=== PATIENT | female | born 1980 | race Hispanic/Latino ===

== ENCOUNTER 2023-07-30 14:57 | Outpatient (RCR) | payer MEDICAID, SELFPAY | END 2023-08-08 23:59 | disposition home or self-care (01) | LOC: CPTX 14:57 | PROVIDERS: PCP Nurse Practitioner Primary Care; Referring Provider Nurse Practitioner Primary Care; Visit Provider Nurse Practitioner Primary Care | DX: Z53.9 Procedure and treatment not carried out, unspecified reason (principal) ==

== ENCOUNTER 2025-07-14 08:30 | Emergency (ER) | payer MEDICAID, SELFPAY ==
--- NOTE | 2025-07-14 08:40 | EKG_ITS ---
[facility] Test Date: 2025-07-14 Pat Name: LOLIS VERGARA Department: Room: - Gender: Female [employer]: : 1980 Requested By: ED Temporary Provider Order Number: [id number] Reading MD: ED Temporary Provider Measurements Intervals [place] Rate: 73 P: -9 WI: 119 QRS: 53 QRSD: 94 T: 48 QT: 374 QTc: 415 Interpretive Statements SINUS RHYTHM WITH SHORT WI INTERVAL Compared to ECG 01/05/2023 08:10:10 Short WI interval now present T-wave abnormality no longer present /store/S0/[id number].pdf
[2025-07-14 08:47] VITALS: BP 144/87; PULSE 79; RESP 18; TEMP 36.7; O2SAT 99; BMI 21.9
--- NOTE | 2025-07-14 09:00 | XR_ITS ---
Examination: PA lateral chest 2 views TECHNIQUE: Upright PA lateral chest 2 views Date and time: July 14, 2025 0902 hours INDICATIONS: Chest pain today. FINDINGS: Suspicious for early pneumonia right base. Normal heart size. Left lung clear. The osseous structures are intact IMPRESSION: Suspicious for early pneumonia right base
--- NOTE | 2025-07-14 09:04 | EDNOTE_ITS ---
ED SOB =RME/HPI General Chief Complaint: Shortness of Breath/Dyspnea Stated Complaint: SOB X1 WEEK Time Seen by Provider: 07/14/25 09:05 Source: patient Arrival date/time: 07/14/25 08:30 45-year-old female with no known medical history presents to the emergency room with a chief complaint of shortness of breath and palpitations x 1 week Mode of arrival: ambulatory Limitations: no limitations Related Data Home Medications ?Medication ?Instructions ?Recorded ?Confirmed hydrocodone 5 mg-acetaminophen 325 1 tab PO Q6H 01/05/23 mg tablet Previous Rx's ?Medication ?Instructions ?Recorded amoxicillin 875 mg-potassium 1 tab PO BID 7 days #14 t abs 07/14/25 clavulanate 125 mg tablet Allergies Allergy/AdvReac Type Severity Reaction Status Date / Time No Known Allergies Allergy Verified 07/14/25 08:33 Review of Systems Review of Systems Systems Reviewed: All systems reviewed, normal except as documented Constitutional Constitutional: Reports system reviewed and no additional complaints, except as documented, Denies fatigue, Denies fever(s), Denies headache(s) and Denies weakness Eyes Eyes: Reports system reviewed and no additional complaints, except as documented, Denies blurry vision and Denies change in vision ENT Ears, Nose, Mouth, and Throat: Reports system reviewed and no additional complaints, except as documented, Denies otalgia, Denies headache(s), Denies nasal congestion, Denies throat swelling and Denies vertigo Cardiovascular Cardiovascular: Reports system reviewed and no additional complaints, except as documented, Denies chest pain, Denies dyspnea, Denies dyspnea on exertion, Repo rts irregular heart rhythm, Reports orthopnea and Reports palpitations Respiratory Respiratory: Reports system reviewed and no additional complaints, except as documented, Denies chest congestion, Denies cough, Denies dyspnea, Denies dyspnea on exertion and Denies wheezing Gastrointestinal Gastrointestinal: Reports system reviewed and no additional complaints, except as documented, Denies abdominal pain, Denies cramping, Denies nausea and Denies vomiting Genitourinary Genitourinary: Reports system reviewed and no additional complaints, except as documented Musculoskeletal Musculoskeletal: Reports system reviewed and no additional complaints, except as documented and Denies back pain Integumentary/Breasts Skin/Breast: Reports system reviewed and no additional complaints, except as documented and Denies wounds Neurologic Neurologic: Reports system reviewed and no additional complaints, except as documented, Denies confusion, Denies headache(s), Denies lack of coordination, Denies vertigo and Denies weakness Psychiatric Psychiatric: Reports system reviewed and no additional complaints, except as documented, Denies anxiety, Denies confusion, Denies depression, Denies paranoia, Denies suicidal ideation and Denies tactile hallucinations Endocrine Endocrine: Reports system reviewed and no additional complaints, except as documented, Denies fatigue and Reports palpitations Hematologic/Lymphatic Hematologic/Lymphatic: Reports system reviewed and no additional complaints, except as documented and Denies lymphadenopathy Allergic/Immunologic Allergic/Immunologic: Reports system reviewed and no additional complaints, except as documented, Denies throat swelling, Denies urticaria and Denies whee zing ED Exam General Limitations: Present no limitations General appearance: Present alert and in no apparent distress Head Head exam: Present atraumatic Eye Eye exam: Present normal appearance, PERRL and EOMI ENT ENT exam: Present normal exam, normal oropharynx and mucous membranes moist Neck Neck exam: Present normal inspection, full ROM and trachea midline Chest Chest inspection: Present normal inspection and symmetric chest wall rise Respiratory Respiratory exam: Present normal lung sounds bilaterally; Absent respiratory distress, wheezes, stridor, accessory muscle use or prolonged expiratory phase Cardiovascular Cardiovascular exam: Present regular rate, normal rhythm, normal heart sounds, +S1 and +S2; Absent bradycardia, tachycardia, irregular rhythm, systolic murmur, diastolic murmur, rubs, gallop, clicks or JVD Abdominal Exam Abdominal exam: Present soft and normal bowel sounds Extremities Exam Extremities exam: Present normal inspection and full ROM Back Exam Back exam: Present normal inspection and full ROM Neurological Exam Neurological exam: Present alert, oriented X3 and CN II-XII intact Psychiatric Psychiatric exam: Present normal affect and normal mood Skin Skin exam: Present warm, dry, intact and normal color Course Quality Measures none Orders Category Date Time Status EKG (ED ONLY) *Do not use* NOW Care 07/14/25 08:40 Completed EKG (ED Only) Stat Exams 07/14/25 08:40 Draft EKG (ED Only) Urgent Exams 07/14/25 08:40 Ordered XR chest 2V Stat Exams 07/14/25 09:00 Completed B-Type Natriuretic Peptide Stat Lab 07/14/25 09:41 Completed CBC Stat Lab 07/14/25 09:41 Completed Comprehensive Metabolic Panel Stat Lab 07/14/25 09:41 Completed Drug Screen,Urine Stat Lab 07/14/25 10:00 Completed Free T4 (Free Thyroxine) Stat Lab 07/14/25 09:41 Completed Magnesium Stat Lab 07/14/25 09:41 Completed Partial Thromboplastin Time Stat Lab 07/14/25 09:41 Completed Prothrombin Time with INR Stat Lab 07/14/25 09:41 Completed TSH [Thyroid Stimulating Hormone] Stat Lab 07/14/25 09:41 Completed Troponin I Stat Lab 07/14/25 09:41 Completed Urinalysis, C/S if Indicated Stat Lab 07/14/25 10:00 Completed Vital Signs Vital signs: Vital Signs Temperature 98.1 F 07/14/25 08:47 Pulse Rate 79 07/14/25 08:47 Respiratory Rate 18 07/14/25 08:47 Blood Pressure 144/87 H 07/14/25 08:47 Pulse Oximetry (%) 99 07/14/25 08:47 Oxygen Delivery Method Room Air 07/14/25 08:47 PROCEDURES: EKG Interpretation #1: Date of EK07/14/25 Rate: 73 Interpretation: Reviewed by me EKG Impression: Normal sinus rhythm Shortness of Breath / Dyspnea MDM Narrative MDM Narrative:: 45-year-old female with no known medical history presents to the emergency room with a chief complaint of shortness of breath and palpitations x 1 week Patient is hemodynamically stable and in no apparent distress. Patient is afebrile nontachycardic nontachypneic and O2 saturation 99% within normal limits Physical examination shows clear bilateral lung sounds there is no wheezing or any abnormal breath sounds CBC CMP are within normal limits. Thyroid function is within normal limits EKG shows normal sinus rhythm at [address] deviation. Troponin BNP were all within normal limits Chest x-ray shows suspicion for pneumonia. Antibiotics are sent to the [facility] pharmacy Patient was discharged and educated to follow-up with primary care provider in the next 24 to 48 hours and return to the emergency room for any evidence of worsening signs or symptoms Patient data External records reviewed:: [facility] previous records Clinical information provided by:: patient Social determinants that could affect healthcare access:: none Patient has the following chronic illnesses:: No chronic illness How is presenting disease/condition affected by chronic disease/condition?: no chronic disease Evaluation data The following diagnostics were reviewed and interpreted by me:: lab results and radiology exam(s) Lab and/or radiology exams considered but not ordered:: Labs and radiology exams considered and ordered Interpretation Summary: Chest x-thy-[id number]: Suspicious for early pneumonia right base. Normal heart size. Left lung clear. The osseous structures are intact IMPRESSION: Suspicious for early pneumonia right base Medications / Prescriptions Medications or Prescriptions considered but not ordered:: No medication given Medication administrations:: No medication given Consultations Consultation(s) initiated? (list below): No Diagnosis Shortness of Breath Differential Diagnosis: community acquired pneumonia and other (Chest pain/palpitations/hypothyroidism/hypothyroidism/STEMI/NSTEMI) Most likely diagnosis given after review of the tests above:: Community-acquired pneumonia Admission Indicated Admission indicated?: not indicated Admission Request Was there a request for admission?: No Disposition Plan Disposition Plan: Discharge Discharge Attestation Discharge Attestation: The patient and all family members were given an opportunity to ask questions and understood the discharge instructions. Discharge instructions specifically effects, indications for sooner follow up or return to the emergency department, and the expected course of current diagnosis. Patient condition: Stable Discharge Plan Plan Patient Disposition: HOME (Self Care) Discharge Disposition comment: Stable Prescriptions/Referrals Prescriptions/Med Rec: New amoxicillin-pot clavulanate 875-125 mg tablet 1 tab PO BID 7 Days Qty: 14 0RF No Action hydrocodone-acetaminophen 5-325 mg tablet 1 tab PO Q6H Patient Comments: Take 1 tablet by mouth every six hours as needed for pain Referrals: Inna May FNP ([facility]) [Primary Care Provider] - In 1 week Problem List Clinical Impression: Community acquired pneumonia Patient/Caregiver Discharge Instructions Education Materials: ED Pneumonia (Adult) Additional Instructions: Please follow-up with your primary care provider in the next 24 to 48 hours Your x-ray showed some pneumonia. Antibiotics were sent to your pharmacy please pick them up and take them as indicated Your cardiac examination was within normal limits. Your blood work was normal your urine was normal For any evidence of worsening signs or symptoms return to emergency room immediately Print Language: Citizen Of [place] Stand Alone Forms: Charley Award Info., Work/School Release, Patient Portal Info Letter DENZEL/AYANA Supervising Physician DENZEL/AYANA Supervising Physician: Dr. Townsend
[2025-07-14 10:02] LABS: Basophils # (Auto) 0.0 Thou/mm3 (0.0-0.2); Basophils % (Auto) 0 % (0-2.5); Eosinophils # (Auto) 0.0 Thou/mm3 (0.0-0.5); Eosinophils % (Auto) 0 % (0-10); Hematocrit 38.5 % (36.0-46.0); Hemoglobin 13.0 g/dL (12.0-16.0); Immature Granulocytes Auto 0.04 Thou/mm3 (0.00-0.00); Lymphocytes # (Auto) 2.8 Thou/mm3 (1.0-4.8); Lymphocytes % (Auto) 23 % (10-50); Mean Corpuscular HGB Conc 33.8 g/dl (31.0-37.0); Mean Corpuscular Hemoglobin 30.2 pg (25.0-35.0); Mean Corpuscular Volume 90 fL (80-100); Monocytes # (Auto) 0.7 Thou/mm3 (0.0-0.8); Monocytes % (Auto) 6 % (0-12); Neutrophils # (Auto) 8.6 Thou/mm3 (1.8-7.7); Neutrophils % (Auto) 70 % (37-80); Nucleated Red Blood Cell # 0.00 Thou/mm3 (0.00-0.00); Nucleated Red Blood Cell % 0 /100 WBC (0); Platelet Count 316 Thou/mm3 (140-440); RDW Standard Deviation 43.4 fL (36.4-46.3); Red Blood Count 4.30 Miln/mm3 (4.00-5.20); White Blood Count 12.3 Thou/mm3 (3.6-11.0)
[2025-07-14 10:15] LABS: Collection Type, Urine Clean Catch
[2025-07-14 10:18] LABS: INR 1.0 (0.9-1.3); Partial Thromboplastin Time 27.7 Seconds (22.0-36.0); Prothrombin Time 11.2 Seconds (9.0-12.2)
[2025-07-14 10:22] LABS: B-Type Natriuretic Peptide < 20 pg/mL (0-100)
[2025-07-14 10:26] LABS: Alanine Aminotransferase 11 U/L (10-49); Albumin, Serum 4.6 gm/dL (3.5-5.0); Albumin/Globulin Ratio 1.6 (1.2-2.2); Alkaline Phosphatase 69 U/L (46-116); Anion Gap 9 (7-16); Aspartate Amino Transferase 14 U/L (0-34); BUN/Creatinine Ratio 9 Ratio (12-20); Bilirubin,Total 0.7 mg/dL (0.3-1.2); Blood Urea Nitrogen 6 mg/dL (9-23); Calcium 9.8 mg/dL (8.3-10.6); Calcium (Corrected) 9.8 mg/dL (8.5-10.1); Carbon Dioxide 25.4 mMol/L (20.0-31.0); Chloride 106 mMol/L (98-107); Creatinine (Component) 0.7 mg/dL (0.6-1.3); Estimated Creatinine Clearance 97.0 mL/min (>60); Free T4 (Free Thyroxine) 1.44 ng/dL (0.89-1.76); Globulin 2.8 gm/dL (2.3-3.5); Glucose 87 mg/dL (74-106); Magnesium 2.0 mg/dL (1.6-2.6); Osmolality,Calculated 276 (275-295); Potassium 4.2 mMol/L (3.4-5.1); Sodium 140 mMol/L (136-145); Thyroid Stimulating Hormone 1.43 uIU/mL (0.55-4.78); Total Protein 7.4 gm/dL (5.7-8.2); Troponin I < 0.002 ng/mL (0.0-0.045); eGFR > 60 See Note
[2025-07-14 10:33] LABS: Amphetamine/Methamp Scrn,U Negative (Negative); Barbiturate Screen,Urine Negative (Negative); Benzodiazepines Screen,Urine Negative (Negative); Benzoylecgonine Screen, Ur Negative (Negative); Fentanyl Screen,Urine Negative (Negative); Opiate Screen,Urine Negative (Negative); THC Screen,Urine Negative (Negative)
[2025-07-14 10:36] LABS: Bacteria,Urine Rare; Bilirubin,Urine Negative (Negative); Blood,Urine Negative (Negative); Color,Urine Lt-Yellow (Lt Yel-Yel); Culture Indicated,Urine Not Indicated; Glucose, Urine Negative (Negative); Hyaline Casts,Urine < 1 /hpf (0-1); Ketones,Urine Trace (Negative); Leukocyte Esterase,Urine Positive (Negative); Nitrite,Urine Negative (Negative); PH,Urine 7.5 (5.0-7.0); Protein,Urine Negative (Neg - Trace); RBC,Urine 4 /hpf (0-3); Specific Gravity,Urine 1.011 (1.001-1.035); Squamous Epithelial Cell,Urine 25 /hpf (0-5); Urobilinogen,Urine Negative mg/dL (0.0-1.0); WBC,Urine 3 /hpf (0-5)
[2025-07-14 11:05] LABS: Clarity,Urine Hazy (Clear/Hazy)
[2025-07-14 11:09] VITALS: BP 109/75; PULSE 79; RESP 21; O2SAT 98
== END 2025-07-14 10:45 | disposition home or self-care (01) ==
PROVIDERS: Nurse Practitioner Family; Emergency Provider Family Medicine; PCP Nurse Practitioner Primary Care
DX: J18.9 Pneumonia, unspecified organism (principal)
CPT/HCPCS: 36415; 71046; 80053; 80307; 81001; 83735; 83880; 84439; 84443; 84484; 85025; 85610; 85730; 93005; 99283

== ENCOUNTER → 2025-07-20 | Outpatient (CLI) | payer MEDICAID, SELFPAY ==
--- NOTE | 2025-07-20 | XR_ITS ---
Examination: Screening digital mammography, bilateral Computer aided detection 3-D breast Tomosynthesis, bilateral Date and time of exam: July 20, 2025 1039 hours comparison mammograms dating to April 03, 2018 Indication: Screening Technique: Nonmagnified MLO, CC views of the breasts to been obtained, reconstructed from 3-D Tomosynthesis images. R2 computer aided detection program utilized for evaluation of suspicious masses and/or abnormal calcifications. 3-D Tomosynthesis images obtained. Findings: The breasts are heterogeneously dense, which may obscure small masses Implants intact No interval suspicious masses Impression: BI-RADS category II: Benign Findings. Recommend 1 year follow-up mammogram.
== END | disposition home or self-care (01) ==
PROVIDERS: PCP Nurse Practitioner Primary Care; Referring Provider Nurse Practitioner Primary Care; Visit Provider Nurse Practitioner Primary Care
DX: Z12.31 Encounter for screening mammogram for malignant neoplasm of breast (principal); R92.323 Mammographic fibroglandular density, bilateral breasts
CPT/HCPCS: 77063; 77067